=== PATIENT | female | born 2005 | race Two or more races ===

== ENCOUNTER 2024-07-18 22:56 | Emergency (ER) | payer SELFPAY ==
[~2024-07-18] VITALS: Ht 157.5 cm; Wt 54.0 kg
[2024-07-19] MEDS: SODIUM CHLORIDE 0.9% 1,000 ML IV ONE (00:16)
[2024-07-19 00:33] LABS: CHLORIDE 113 mEq/L (98-107); POTASSIUM 3.2 mEq/L (3.5-5.1); SODIUM 144 mEq/L (136-145)
[2024-07-19 00:34] LABS: CALCIUM 8.4 mg/dL (8.7-10.4); CARBON DIOXIDE 25 mEq/L (21-32)
[2024-07-19 00:39] LABS: CREATININE 0.8 mg/dL (0.6-1.0); GLUCOSE 92 mg/dL (70-105); UREA NITROGEN BLOOD 6 mg/dL (9-23)
[2024-07-19 00:47] LABS: BASOPHILS % 0.9 % (0.0-2.0); EOSINOPHILS % 3.6 % (0.0-5.0); HEMATOCRIT. 35.5 % (36.0-48.0); HEMOGLOBIN. 11.8 g/dL (12.0-16.0); LYMPHOCYTES % 33.3 % (20.0-50.0); MEAN CORPUSCULAR HEMOGLOBIN 28.8 pg (28.0-32.0); MEAN CORPUSCULAR HGB CONC 33.2 g/dL (31.0-37.0); MEAN CORPUSCULAR VOLUME 86.7 fL (81.0-99.0); MEAN PLATELET VOLUME 7.7 fl (7.4-10.4); MONOCYTES % 8.4 % (2.0-8.0); NEUTROPHILS % 53.8 % (40.0-76.0); PLATELET 335 x1000/uL (130-400); RED BLOOD CELL COUNT 4.09 mill/uL (4.2-5.4); RED CELL DISTRIBUTION WIDTH 13.9 % (11.6-14.6); WHITE BLOOD COUNT 8.1 x1000/uL (4.5-11.0)
[2024-07-19 00:50] LABS: HCG SCREEN NEGATIVE
[2024-07-19] MEDS: KCL 20MEQ/100ML PREMIX 100 ML IV NR (02:05)
[2024-07-19] MEDS: POTASSIUM CHLORIDE 20MEQ/PACKET PO NR (02:06)
[2024-07-19 03:45] VITALS: O2SAT 99
[2024-07-19 06:40] VITALS: BP 110/60; PULSE 70; RESP 14; TEMP 36.7; O2SAT 99
== END 2024-07-19 09:52 | disposition home or self-care (01) ==
LOC: ER 22:56
DX: I95.9 Hypotension, unspecified (principal); E87.6 Hypokalemia; Z00.00 Encounter for general adult medical examination without abnormal findings
CPT/HCPCS: 80048; 84703; 85025; 36415; 93005; 99291; 96361; 96365; J7030; Z7610 ×2; J3480; A4606